=== PATIENT | female | born 1975 | race African-American/Black ===

== ENCOUNTER 2019-04-07 14:02 | Emergency (ER) | payer MEDICAID, OTHER ==
[~2019-04-07] VITALS: Ht 167.6 cm; Wt 80.0 kg
[2019-04-07] MEDS ORDERED: HYDROCODONE/ACETAMINOPHEN 5/325MG TABLET PO ONE (17:30)
[2019-04-07 19:26] VITALS: BP 112/82
== END 2019-04-07 19:27 | disposition home or self-care (01) ==
LOC: ER 14:02
DX: S09.8XXA Other specified injuries of head, initial encounter (principal); R68.84 Jaw pain; M25.552 Pain in left hip; M79.645 Pain in left finger(s); Y07.03 Male partner, perpetrator of maltreatment and neglect; Y08.89XA Assault by other specified means, initial encounter; Y93.89 Activity, other specified; Y04.2XXA Assault by strike against or bumped into by another person, initial encounter; Y92.89 Other specified places as the place of occurrence of the external cause
CPT/HCPCS: 70486; 73130; 73502; 81025; 99284